=== PATIENT | male | born 1955 ===

== ENCOUNTER 2021-01-22 09:40 | Inpatient (IN) ==
[2021-01-22] MEDS ORDERED: Ondansetron 4 MG/2 ML VIAL IVP ONE (10:28)
[2021-01-22] MEDS ORDERED: 0.9 % Sodium Chloride 1,000 ML IVC ONE (10:28)
[2021-01-22] MEDS ORDERED: Isovue-370 500 ML BOTTLE IVP ONE (10:29)
[2021-01-22 10:53] LABS: Hematocrit 46.1 % (37.5-50.1); Hemoglobin 15.6 g/dL (12.9-16.9); Mean Corpuscular HGB Conc 33.8 g/dL (31.6-35.5); Mean Corpuscular Hemoglobin 30.9 pg (28.0-33.3); Mean Corpuscular Volume 91.3 fL (83.0-100.0); Platelet Count 275 K/mcL (140-400); Red Blood Count 5.05 M/mcL (4.19-5.50); Red Cell Distribution Width 13.1 % (11.5-14.5); White Blood Count 25.3 K/mcL (4.3-11.1)
[2021-01-22 11:09] LABS: Alanine Aminotransferase 36 Units/L (7-52); Albumin 4.3 g/dL (3.5-5.7); Albumin/Globulin Ratio 1.2 (1.1-2.2); Alkaline Phosphatase 87 Units/L (34-104); Aspartate Amino Transferase 26 Units/L (13-39); BUN/Creatinine Ratio 9 (6-26); Bilirubin,Direct 0.1 mg/dL (0.0-0.2); Bilirubin,Indirect 0.5 mg/dL (0.0-1.0); Bilirubin,Total 0.6 mg/dL (0.3-1.0); Blood Urea Nitrogen 10 mg/dL (8-23); Calcium 9.6 mg/dL (8.6-10.3); Carbon Dioxide 25 mEq/L (23-29); Chloride 100 mEq/L (98-107); Globulin 3.6 g/dL (2.4-3.5); Glucose 149 mg/dL (70-105); Lipase 6 Units/L (11-82); Osmolality,Calculated 282 (280-300); Sodium 135 mEq/L (136-145); Total Protein 7.9 g/dL (6.4-8.9); eGFR For African Americans > 60 (> 60); eGFR For Non-African Americans > 60 (> 60)
[2021-01-22 11:18] LABS: Monocytes # 0.5 K/mcL (0.0-1.3); Neutrophils # 23.8 K/mcL (1.6-8.9); Platelet Estimate Normal (Normal)
[2021-01-22] MEDS ORDERED: MetroNIDAZOLE 500 MG/100 ML 500 MG/100 ML BAG IVPB ONE (12:30)
[2021-01-22 12:59] LABS: Bilirubin,Urine Negative (Negative); Blood,Urine Trace (Negative); Clarity,Urine Clear (Clear); Color,Urine Light-Yellow (Yellow); Glucose,Urine (UA) Normal (Normal); Ketones,Urine Negative (Negative); Leukocyte Esterase,Urine Negative (Negative); Mucus,Urine Few per lpf (None-Few); Nitrite,Urine Negative (Negative); Protein,Urine Trace mg/dL (Neg-Trace); RBC,Urine 0-3 per hpf (0-3); Specific Gravity,Urine 1.018 (1.010-1.025); Urobilinogen,Urine Normal (Normal); WBC,Urine 0-3 per hpf (0-3)
[2021-01-22] MEDS ORDERED: Morphine Sulfate 2 MG/ML SYRINGE IVP STA (13:06)
[2021-01-22] MEDS ORDERED: Ondansetron 4 MG/2 ML VIAL IVP PRN (14:33)
[2021-01-22] MEDS ORDERED: Naloxone 0.4 MG/ML INJ IVP PRN (14:33)
[2021-01-22] MEDS: 0.9 % Sodium Chloride 1,000 ML IVC SCH ×3 (15:46→18:23)
[2021-01-22] MEDS: Piperacillin/Tazobactam 3.375 GM in 0.9 % Sodium Chloride Mini Bag 100 ML IVPB SCH (15:47)
[2021-01-22] MEDS: Primidone 50 MG TABLET PO SCH (21:41)
[2021-01-22] MEDS: lamoTRIgine 25 MG TABLET PO SCH (21:41)
[2021-01-23] MEDS: Piperacillin/Tazobactam 3.375 GM in 0.9 % Sodium Chloride Mini Bag 100 ML IVPB SCH ×3 (00:47→17:15)
[2021-01-23] MEDS: Latanoprost 2.5 ML BOTTLE BOTH EYES SCH ×2 (00:55→20:27)
[2021-01-23] MEDS: *HR* Enoxaparin 40 MG/0.4 ML SYRINGE SQ SCH (06:30)
[2021-01-23] MEDS: 0.9 % Sodium Chloride 1,000 ML IVC SCH (06:36)
[2021-01-23] MEDS: Aspirin Enteric Coated 81 MG Tablet PO SCH (10:11)
[2021-01-23 10:40] LABS: Basophils % 0.2 %; Eosinophils % 0.1 %; Hematocrit 38.5 % (37.5-50.1); Immature Granulocytes % 1.1 % (0-4); Lymphocytes # 1.4 K/mcL (0.6-4.6); Lymphocytes % 6.6 %; Mean Corpuscular HGB Conc 33.2 g/dL (31.6-35.5); Mean Corpuscular Hemoglobin 30.8 pg (28.0-33.3); Mean Corpuscular Volume 92.5 fL (83.0-100.0); Mean Platelet Volume 10.9 fL (9.4-12.4); Monocytes # 1.2 K/mcL (0.0-1.3); Monocytes % 5.5 %; Neutrophils # 18.2 K/mcL (1.6-8.9); Platelet Count 248 K/mcL (140-400); Red Blood Count 4.16 M/mcL (4.19-5.50); Red Cell Distribution Width 13.1 % (11.5-14.5); Segmented Neutrophils % 86.5 %
[2021-01-23 10:41] LABS: Hemoglobin 12.8 g/dL (12.9-16.9)
[2021-01-23 10:54] LABS: BUN/Creatinine Ratio 8 (6-26); Blood Urea Nitrogen 8 mg/dL (8-23); Calcium 8.1 mg/dL (8.6-10.3); Carbon Dioxide 23 mEq/L (23-29); Chloride 108 mEq/L (98-107); Glucose 116 mg/dL (70-105); Magnesium 1.9 mg/dL (1.6-2.6); Osmolality,Calculated 287 (280-300); Potassium 3.9 mEq/L (3.5-5.1); Sodium 139 mEq/L (136-145); eGFR For African Americans > 60 (> 60); eGFR For Non-African Americans > 60 (> 60)
[2021-01-23] MEDS ORDERED: *HR* HYDROmorphone (PF) 1 MG/ML SYRINGE IVP ONE (13:24)
[2021-01-23] MEDS: CENOBAMATE 200 MG PO SCH (13:52)
[2021-01-23] MEDS: lamoTRIgine 25 MG TABLET PO SCH (20:21)
[2021-01-23] MEDS: Primidone 50 MG TABLET PO SCH (20:21)
[2021-01-24] MEDS: Piperacillin/Tazobactam 3.375 GM in 0.9 % Sodium Chloride Mini Bag 100 ML IVPB SCH ×3 (00:46→15:40)
[2021-01-24] MEDS: *HR* Enoxaparin 40 MG/0.4 ML SYRINGE SQ SCH (06:07)
[2021-01-24 07:05] LABS: Basophils % 0.3 %; Eosinophils # 0.3 K/mcL (0.0-0.6); Eosinophils % 1.8 %; Hematocrit 37.9 % (37.5-50.1); Hemoglobin 12.7 g/dL (12.9-16.9); Immature Granulocytes % 0.9 % (0-4); Lymphocytes # 1.2 K/mcL (0.6-4.6); Lymphocytes % 7.7 %; Mean Corpuscular HGB Conc 33.5 g/dL (31.6-35.5); Mean Corpuscular Hemoglobin 31.3 pg (28.0-33.3); Mean Corpuscular Volume 93.3 fL (83.0-100.0); Mean Platelet Volume 10.5 fL (9.4-12.4); Monocytes # 1.2 K/mcL (0.0-1.3); Monocytes % 8.1 %; Neutrophils # 12.3 K/mcL (1.6-8.9); Platelet Count 277 K/mcL (140-400); Red Blood Count 4.06 M/mcL (4.19-5.50); Red Cell Distribution Width 13.1 % (11.5-14.5); Segmented Neutrophils % 81.2 %; White Blood Count 15.2 K/mcL (4.3-11.1)
[2021-01-24 07:30] LABS: BUN/Creatinine Ratio 9 (6-26); Blood Urea Nitrogen 8 mg/dL (8-23); Calcium 8.1 mg/dL (8.6-10.3); Carbon Dioxide 23 mEq/L (23-29); Chloride 105 mEq/L (98-107); Glucose 130 mg/dL (70-105); Magnesium 1.8 mg/dL (1.6-2.6); Osmolality,Calculated 282 (280-300); Potassium 3.8 mEq/L (3.5-5.1); Sodium 136 mEq/L (136-145); eGFR For African Americans > 60 (> 60); eGFR For Non-African Americans > 60 (> 60)
[2021-01-24] MEDS: CENOBAMATE 200 MG PO SCH (09:07)
[2021-01-24] MEDS: Aspirin Enteric Coated 81 MG Tablet PO SCH (09:07)
[2021-01-24] MEDS: Primidone 50 MG TABLET PO SCH (21:47)
[2021-01-24] MEDS: Latanoprost 2.5 ML BOTTLE BOTH EYES SCH (21:47)
[2021-01-24] MEDS: lamoTRIgine 25 MG TABLET PO SCH (21:47)
[2021-01-25] MEDS: Piperacillin/Tazobactam 3.375 GM in 0.9 % Sodium Chloride Mini Bag 100 ML IVPB SCH ×3 (00:27→16:15)
[2021-01-25 03:30] LABS: Basophils % 0.3 %; Eosinophils # 0.4 K/mcL (0.0-0.6); Eosinophils % 2.8 %; Hematocrit 35.9 % (37.5-50.1); Hemoglobin 12.3 g/dL (12.9-16.9); Immature Granulocytes % 0.8 % (0-4); Lymphocytes # 1.8 K/mcL (0.6-4.6); Lymphocytes % 12.9 %; Mean Corpuscular HGB Conc 34.3 g/dL (31.6-35.5); Mean Corpuscular Hemoglobin 31.5 pg (28.0-33.3); Mean Corpuscular Volume 91.8 fL (83.0-100.0); Monocytes # 1.4 K/mcL (0.0-1.3); Monocytes % 9.9 %; Neutrophils # 10.3 K/mcL (1.6-8.9); Platelet Count 273 K/mcL (140-400); Red Blood Count 3.91 M/mcL (4.19-5.50); Red Cell Distribution Width 12.9 % (11.5-14.5); Segmented Neutrophils % 73.3 %
[2021-01-25 03:49] LABS: BUN/Creatinine Ratio 8 (6-26); Blood Urea Nitrogen 7 mg/dL (8-23); Calcium 8.2 mg/dL (8.6-10.3); Carbon Dioxide 26 mEq/L (23-29); Chloride 102 mEq/L (98-107); Glucose 123 mg/dL (70-105); Osmolality,Calculated 277 (280-300); Potassium 3.9 mEq/L (3.5-5.1); Sodium 134 mEq/L (136-145); eGFR For African Americans > 60 (> 60); eGFR For Non-African Americans > 60 (> 60)
[2021-01-25] MEDS: *HR* Enoxaparin 40 MG/0.4 ML SYRINGE SQ SCH (08:20)
[2021-01-25] MEDS: CENOBAMATE 200 MG PO SCH (08:22)
[2021-01-25] MEDS: Aspirin Enteric Coated 81 MG Tablet PO SCH (08:22)
[2021-01-25] MEDS ORDERED: methylPREDNISolone 125 MG/2 ML VIAL IVP ONE (12:56)
[2021-01-25] MEDS: Latanoprost 2.5 ML BOTTLE BOTH EYES SCH (20:38)
[2021-01-25] MEDS: lamoTRIgine 25 MG TABLET PO SCH (20:39)
[2021-01-25] MEDS: Primidone 50 MG TABLET PO SCH (20:39)
[2021-01-26] MEDS: Piperacillin/Tazobactam 3.375 GM in 0.9 % Sodium Chloride Mini Bag 100 ML IVPB SCH ×4 (00:55→23:57)
[2021-01-26] MEDS: *HR* Enoxaparin 40 MG/0.4 ML SYRINGE SQ SCH (05:22)
[2021-01-26 06:43] LABS: Basophils # 0.1 K/mcL (0.0-0.2); Basophils % 0.3 %; Eosinophils # 0.1 K/mcL (0.0-0.6); Eosinophils % 0.7 %; Hematocrit 37.9 % (37.5-50.1); Hemoglobin 12.2 g/dL (12.9-16.9); Immature Granulocytes % 1.3 % (0-4); Lymphocytes # 2.5 K/mcL (0.6-4.6); Lymphocytes % 15.7 %; Mean Corpuscular HGB Conc 32.2 g/dL (31.6-35.5); Mean Corpuscular Hemoglobin 29.9 pg (28.0-33.3); Mean Corpuscular Volume 92.9 fL (83.0-100.0); Mean Platelet Volume 9.6 fL (9.4-12.4); Monocytes # 1.6 K/mcL (0.0-1.3); Monocytes % 10.2 %; Neutrophils # 11.4 K/mcL (1.6-8.9); Platelet Count 301 K/mcL (140-400); Red Blood Count 4.08 M/mcL (4.19-5.50); Red Cell Distribution Width 12.8 % (11.5-14.5); Segmented Neutrophils % 71.8 %; White Blood Count 15.9 K/mcL (4.3-11.1)
[2021-01-26 07:01] LABS: BUN/Creatinine Ratio 10 (6-26); Blood Urea Nitrogen 8 mg/dL (8-23); Calcium 8.7 mg/dL (8.6-10.3); Carbon Dioxide 25 mEq/L (23-29); Chloride 101 mEq/L (98-107); Glucose 98 mg/dL (70-105); Osmolality,Calculated 280 (280-300); Potassium 3.7 mEq/L (3.5-5.1); Sodium 136 mEq/L (136-145); eGFR For African Americans > 60 (> 60); eGFR For Non-African Americans > 60 (> 60)
[2021-01-26] MEDS: CENOBAMATE 200 MG PO SCH (09:07)
[2021-01-26] MEDS: Aspirin Enteric Coated 81 MG Tablet PO SCH (09:07)
[2021-01-26] MEDS ORDERED: Bisacodyl 10 MG RECTAL SUPPOSITORY RC ONE (15:41)
[2021-01-26] MEDS ORDERED: Morphine Sulfate 2 MG/ML SYRINGE IVP ONE (16:20)
[2021-01-26] MEDS ORDERED: SODIUM CHLORIDE/NAHCO3/KCL/PEG 4,000 ML SOLN.RECON PO ONE (17:00)
[2021-01-26] MEDS: Morphine Sulfate 2 MG/ML SYRINGE IVP STA ×2 (18:01→20:04)
[2021-01-26] MEDS: lamoTRIgine 25 MG TABLET PO SCH (20:38)
[2021-01-26] MEDS: Primidone 50 MG TABLET PO SCH (20:39)
[2021-01-26] MEDS: Latanoprost 2.5 ML BOTTLE BOTH EYES SCH (20:40)
[2021-01-27] MEDS: *HR* Enoxaparin 40 MG/0.4 ML SYRINGE SQ SCH (05:12)
[2021-01-27 06:55] LABS: Basophils # 0.1 K/mcL (0.0-0.2); Basophils % 0.4 %; Eosinophils # 0.1 K/mcL (0.0-0.6); Eosinophils % 0.4 %; Hematocrit 42.1 % (37.5-50.1); Immature Granulocytes % 1.2 % (0-4); Lymphocytes # 1.7 K/mcL (0.6-4.6); Lymphocytes % 11.7 %; Mean Corpuscular HGB Conc 33.5 g/dL (31.6-35.5); Mean Corpuscular Hemoglobin 30.9 pg (28.0-33.3); Mean Corpuscular Volume 92.1 fL (83.0-100.0); Mean Platelet Volume 10.1 fL (9.4-12.4); Monocytes # 1.4 K/mcL (0.0-1.3); Monocytes % 9.3 %; Neutrophils # 11.3 K/mcL (1.6-8.9); Platelet Count 321 K/mcL (140-400); Red Blood Count 4.57 M/mcL (4.19-5.50); White Blood Count 14.7 K/mcL (4.3-11.1)
[2021-01-27 06:56] LABS: Hemoglobin 14.1 g/dL (12.9-16.9)
[2021-01-27] MEDS: Aspirin Enteric Coated 81 MG Tablet PO SCH (07:16)
[2021-01-27 07:21] LABS: BUN/Creatinine Ratio 10 (6-26); Blood Urea Nitrogen 8 mg/dL (8-23); Calcium 9.3 mg/dL (8.6-10.3); Carbon Dioxide 26 mEq/L (23-29); Chloride 97 mEq/L (98-107); Glucose 109 mg/dL (70-105); Osmolality,Calculated 279 (280-300); Potassium 4.1 mEq/L (3.5-5.1); Sodium 135 mEq/L (136-145); eGFR For African Americans > 60 (> 60); eGFR For Non-African Americans > 60 (> 60)
[2021-01-27] MEDS: Piperacillin/Tazobactam 3.375 GM in 0.9 % Sodium Chloride Mini Bag 100 ML IVPB SCH ×3 (07:56→23:44)
[2021-01-27] MEDS: CENOBAMATE 200 MG PO SCH (07:56)
[2021-01-27] MEDS ORDERED: SODIUM CHLORIDE/NAHCO3/KCL/PEG 4,000 ML SOLN.RECON PO ONE (17:00)
[2021-01-27] MEDS: lamoTRIgine 25 MG TABLET PO SCH (20:20)
[2021-01-27] MEDS: Latanoprost 2.5 ML BOTTLE BOTH EYES SCH (20:21)
[2021-01-27] MEDS: Primidone 50 MG TABLET PO SCH (20:21)
[2021-01-28 05:30] LABS: Basophils # 0.1 K/mcL (0.0-0.2); Basophils % 0.6 %; Eosinophils # 0.2 K/mcL (0.0-0.6); Eosinophils % 1.8 %; Hematocrit 36.4 % (37.5-50.1); Immature Granulocytes % 1.2 % (0-4); Lymphocytes # 1.8 K/mcL (0.6-4.6); Lymphocytes % 16.9 %; Mean Corpuscular HGB Conc 33.5 g/dL (31.6-35.5); Mean Corpuscular Hemoglobin 31.2 pg (28.0-33.3); Mean Corpuscular Volume 93.1 fL (83.0-100.0); Mean Platelet Volume 9.1 fL (9.4-12.4); Monocytes # 1.4 K/mcL (0.0-1.3); Monocytes % 12.8 %; Neutrophils # 7.2 K/mcL (1.6-8.9); Platelet Count 301 K/mcL (140-400); Red Blood Count 3.91 M/mcL (4.19-5.50); Segmented Neutrophils % 66.7 %; White Blood Count 10.8 K/mcL (4.3-11.1)
[2021-01-28 05:33] LABS: Hemoglobin 12.2 g/dL (12.9-16.9)
[2021-01-28] MEDS: *HR* Enoxaparin 40 MG/0.4 ML SYRINGE SQ SCH (05:33)
[2021-01-28 05:48] LABS: BUN/Creatinine Ratio 9 (6-26); Blood Urea Nitrogen 7 mg/dL (8-23); Calcium 7.9 mg/dL (8.6-10.3); Carbon Dioxide 23 mEq/L (23-29); Chloride 104 mEq/L (98-107); Glucose 107 mg/dL (70-105); Osmolality,Calculated 280 (280-300); Potassium 3.6 mEq/L (3.5-5.1); Sodium 136 mEq/L (136-145); eGFR For African Americans > 60 (> 60); eGFR For Non-African Americans > 60 (> 60)
[2021-01-28] MEDS: Piperacillin/Tazobactam 3.375 GM in 0.9 % Sodium Chloride Mini Bag 100 ML IVPB SCH ×2 (08:55→16:48)
[2021-01-28] MEDS ORDERED: Ringers Solution, Lactated 1,000 ML IVC SCH (09:45)
[2021-01-28] MEDS ORDERED: *HR* Propofol 200 MG/20 ML VIAL IVP ONE (13:05)
[2021-01-28] MEDS ORDERED: Lidocaine -MPF 2% 5 ML VIAL ONE (13:05)
[2021-01-28] MEDS: Aspirin Enteric Coated 81 MG Tablet PO SCH (13:30)
[2021-01-28] MEDS: CENOBAMATE 200 MG PO SCH (13:30)
[2021-01-28] MEDS ORDERED: predniSONE 20 MG TABLET PO ONE (13:41)
[2021-01-28] MEDS: lamoTRIgine 25 MG TABLET PO SCH (20:27)
[2021-01-28] MEDS: Primidone 50 MG TABLET PO SCH (20:27)
[2021-01-28] MEDS ORDERED: Latanoprost 2.5 ML BOTTLE RIGHT EYE SCH (21:00)
[2021-01-29] MEDS: Piperacillin/Tazobactam 3.375 GM in 0.9 % Sodium Chloride Mini Bag 100 ML IVPB SCH ×2 (00:31→07:55)
[2021-01-29 06:57] LABS: Basophils % 0.3 %; Eosinophils # 0.1 K/mcL (0.0-0.6); Eosinophils % 0.4 %; Hematocrit 38.2 % (37.5-50.1); Hemoglobin 12.7 g/dL (12.9-16.9); Lymphocytes # 2.1 K/mcL (0.6-4.6); Lymphocytes % 14.9 %; Mean Corpuscular HGB Conc 33.2 g/dL (31.6-35.5); Mean Corpuscular Hemoglobin 30.5 pg (28.0-33.3); Mean Corpuscular Volume 91.8 fL (83.0-100.0); Mean Platelet Volume 9.4 fL (9.4-12.4); Monocytes # 1.3 K/mcL (0.0-1.3); Monocytes % 9.6 %; Neutrophils # 10.2 K/mcL (1.6-8.9); Platelet Count 316 K/mcL (140-400); Red Blood Count 4.16 M/mcL (4.19-5.50); Red Cell Distribution Width 12.9 % (11.5-14.5); Segmented Neutrophils % 73.8 %; White Blood Count 13.8 K/mcL (4.3-11.1)
[2021-01-29 07:17] LABS: BUN/Creatinine Ratio 9 (6-26); Blood Urea Nitrogen 7 mg/dL (8-23); Calcium 8.3 mg/dL (8.6-10.3); Carbon Dioxide 23 mEq/L (23-29); Chloride 104 mEq/L (98-107); Glucose 97 mg/dL (70-105); Osmolality,Calculated 280 (280-300); Potassium 3.7 mEq/L (3.5-5.1); Sodium 136 mEq/L (136-145); eGFR For African Americans > 60 (> 60); eGFR For Non-African Americans > 60 (> 60)
[2021-01-29] MEDS: *HR* Enoxaparin 40 MG/0.4 ML SYRINGE SQ SCH (07:55)
[2021-01-29] MEDS: Aspirin Enteric Coated 81 MG Tablet PO SCH (08:05)
[2021-01-29] MEDS: CENOBAMATE 200 MG PO SCH (08:05)
[2021-01-29 10:18] VITALS: BP 134/72
== END 2021-01-29 12:06 | disposition home or self-care (01) | DRG 872 ==
LOC: 3ANU 09:40 → EMEROOARM 09:40 → SUATTDRO 13:43 → 3ANU 14:12 → SUATTDRO 01-24 12:46
PROVIDERS: ADMIT Internal Medicine; ATTEND Internal Medicine

== ENCOUNTER 2021-02-11 17:24 | Inpatient (IN) ==
[2021-02-11] MEDS ORDERED: Ondansetron 4 MG/2 ML VIAL IVP PRN (17:58)
[2021-02-11] MEDS ORDERED: Naloxone 0.4 MG/ML INJ IVP PRN (17:58)
[2021-02-11 19:03] LABS: Basophils # 0.1 K/mcL (0.0-0.2); Basophils % 0.6 %; Eosinophils # 0.2 K/mcL (0.0-0.6); Eosinophils % 1.9 %; Hematocrit 36.9 % (37.5-50.1); Immature Granulocytes % 0.6 % (0-4); Lymphocytes # 1.8 K/mcL (0.6-4.6); Mean Corpuscular HGB Conc 32.5 g/dL (31.6-35.5); Mean Corpuscular Volume 92.3 fL (83.0-100.0); Mean Platelet Volume 9.6 fL (9.4-12.4); Monocytes # 0.8 K/mcL (0.0-1.3); Monocytes % 10.8 %; Neutrophils # 4.9 K/mcL (1.6-8.9); Platelet Count 372 K/mcL (140-400); Red Cell Distribution Width 13.2 % (11.5-14.5); Segmented Neutrophils % 63.1 %; White Blood Count 7.8 K/mcL (4.3-11.1)
[2021-02-11 19:10] LABS: INR 1.6; Prothrombin Time 17.7 Seconds (9.4-12.1)
[2021-02-11 19:24] LABS: BUN/Creatinine Ratio 19 (6-26); Blood Urea Nitrogen 14 mg/dL (8-23); Calcium 8.5 mg/dL (8.6-10.3); Carbon Dioxide 23 mEq/L (23-29); Chloride 103 mEq/L (98-107); Glucose 225 mg/dL (70-105); Osmolality,Calculated 286 (280-300); Phosphorous 2.9 mg/dL (2.7-4.5); Potassium 3.1 mEq/L (3.5-5.1); Sodium 134 mEq/L (136-145); eGFR For African Americans > 60 (> 60); eGFR For Non-African Americans > 60 (> 60)
[2021-02-11] MEDS: Ringers Solution, Lactated 1,000 ML IVC SCH (23:04)
[2021-02-12 01:02] LABS: Basophils # 0.1 K/mcL (0.0-0.2); Eosinophils # 0.2 K/mcL (0.0-0.6); Eosinophils % 3.1 %; Hematocrit 37.4 % (37.5-50.1); Hemoglobin 11.8 g/dL (12.9-16.9); Immature Granulocytes % 0.4 % (0-4); Lymphocytes # 2.1 K/mcL (0.6-4.6); Lymphocytes % 31.4 %; Mean Corpuscular HGB Conc 31.6 g/dL (31.6-35.5); Mean Corpuscular Hemoglobin 29.4 pg (28.0-33.3); Mean Corpuscular Volume 93.3 fL (83.0-100.0); Mean Platelet Volume 9.7 fL (9.4-12.4); Monocytes % 15.2 %; Neutrophils # 3.3 K/mcL (1.6-8.9); Platelet Count 369 K/mcL (140-400); Red Blood Count 4.01 M/mcL (4.19-5.50); Red Cell Distribution Width 13.1 % (11.5-14.5); Segmented Neutrophils % 48.9 %; White Blood Count 6.7 K/mcL (4.3-11.1)
[2021-02-12 01:09] LABS: INR 1.5
[2021-02-12 01:17] LABS: BUN/Creatinine Ratio 15 (6-26); Blood Urea Nitrogen 11 mg/dL (8-23); Calcium 8.6 mg/dL (8.6-10.3); Carbon Dioxide 25 mEq/L (23-29); Chloride 106 mEq/L (98-107); Glucose 93 mg/dL (70-105); Osmolality,Calculated 285 (280-300); Potassium 3.8 mEq/L (3.5-5.1); Sodium 138 mEq/L (136-145); eGFR For African Americans > 60 (> 60); eGFR For Non-African Americans > 60 (> 60)
[2021-02-12 02:12] LABS: Alanine Aminotransferase 206 Units/L (7-52); Albumin 3.4 g/dL (3.5-5.7); Albumin/Globulin Ratio 1.2 (1.1-2.2); Alkaline Phosphatase 62 Units/L (34-104); Aspartate Amino Transferase 130 Units/L (13-39); Bilirubin,Indirect 0.3 mg/dL (0.0-1.0); Bilirubin,Total 0.3 mg/dL (0.3-1.0); Globulin 2.8 g/dL (2.4-3.5); Total Protein 6.2 g/dL (6.4-8.9)
[2021-02-12] MEDS: Ringers Solution, Lactated 1,000 ML IVC SCH (07:04)
[2021-02-12] MEDS ORDERED: *HR* Midazolam HCl 2 MG/2 ML VIAL IVP ONE (10:46)
[2021-02-12] MEDS ORDERED: *HR* FentaNYL (PF) 100 MCG/2 ML VIAL IVP ONE (10:46)
[2021-02-12] MEDS: Piperacillin/Tazobactam 3.375 GM in 0.9 % Sodium Chloride Mini Bag 100 ML IVPB SCH ×2 (12:08→17:20)
[2021-02-12] MEDS: 0.9 % Sodium Chloride 1,000 ML IVC SCH ×2 (12:09→20:20)
[2021-02-12] MEDS: Primidone 50 MG TABLET PO SCH (13:22)
[2021-02-12] MEDS: Aspirin Enteric Coated 81 MG Tablet PO SCH (13:22)
[2021-02-12] MEDS: Patient Taking Own Medication 1 EACH PO SCH (13:27)
[2021-02-12] MEDS: *HR* OxyCODONE Immed Rel 5 MG TABLET PO PRN ×2 (15:14→21:21)
[2021-02-12] MEDS: *HR* Heparin 5,000 UNIT/ML VIAL SQ SCH (17:21)
[2021-02-12] MEDS ORDERED: Piperacillin/Tazobactam 3.375 GM in 0.9 % Sodium Chloride Mini Bag 100 ML IVPB SCH (19:00)
[2021-02-12] MEDS: Latanoprost 2.5 ML BOTTLE RIGHT EYE SCH (20:21)
[2021-02-13] MEDS: Piperacillin/Tazobactam 3.375 GM in 0.9 % Sodium Chloride Mini Bag 100 ML IVPB SCH ×3 (01:53→16:45)
[2021-02-13] MEDS: *HR* OxyCODONE Immed Rel 5 MG TABLET PO PRN ×2 (03:00→09:41)
[2021-02-13 03:17] LABS: Basophils # 0.1 K/mcL (0.0-0.2); Basophils % 0.8 %; Eosinophils # 0.3 K/mcL (0.0-0.6); Eosinophils % 4.1 %; Hematocrit 35.2 % (37.5-50.1); Hemoglobin 11.4 g/dL (12.9-16.9); Immature Granulocytes % 0.3 % (0-4); Lymphocytes # 2.1 K/mcL (0.6-4.6); Lymphocytes % 27.1 %; Mean Corpuscular HGB Conc 32.4 g/dL (31.6-35.5); Mean Corpuscular Hemoglobin 30.2 pg (28.0-33.3); Mean Corpuscular Volume 93.1 fL (83.0-100.0); Mean Platelet Volume 9.6 fL (9.4-12.4); Monocytes % 12.8 %; Neutrophils # 4.3 K/mcL (1.6-8.9); Platelet Count 332 K/mcL (140-400); Red Blood Count 3.78 M/mcL (4.19-5.50); Red Cell Distribution Width 13.3 % (11.5-14.5); Segmented Neutrophils % 54.9 %; White Blood Count 7.8 K/mcL (4.3-11.1)
[2021-02-13 03:42] LABS: Alanine Aminotransferase 163 Units/L (7-52); Albumin/Globulin Ratio 1.3 (1.1-2.2); Alkaline Phosphatase 52 Units/L (34-104); Aspartate Amino Transferase 91 Units/L (13-39); BUN/Creatinine Ratio 12 (6-26); Bilirubin,Total 0.2 mg/dL (0.3-1.0); Blood Urea Nitrogen 8 mg/dL (8-23); Calcium 7.8 mg/dL (8.6-10.3); Carbon Dioxide 23 mEq/L (23-29); Chloride 110 mEq/L (98-107); Globulin 2.4 g/dL (2.4-3.5); Glucose 100 mg/dL (70-105); Osmolality,Calculated 284 (280-300); Potassium 3.7 mEq/L (3.5-5.1); Sodium 138 mEq/L (136-145); Total Protein 5.4 g/dL (6.4-8.9); eGFR For African Americans > 60 (> 60); eGFR For Non-African Americans > 60 (> 60)
[2021-02-13] MEDS: 0.9 % Sodium Chloride 1,000 ML IVC SCH (04:28)
[2021-02-13] MEDS: *HR* Heparin 5,000 UNIT/ML VIAL SQ SCH ×2 (06:17→16:45)
[2021-02-13] MEDS: Aspirin Enteric Coated 81 MG Tablet PO SCH (08:25)
[2021-02-13] MEDS: Primidone 50 MG TABLET PO SCH (08:25)
[2021-02-13] MEDS: CENOBAMATE 200 MG PO SCH ×2 (08:30→09:15)
[2021-02-13] MEDS: Patient Taking Own Medication 1 EACH PO SCH (14:55)
[2021-02-13] MEDS: methylPREDNISolone 125 MG/2 ML VIAL IVP SCH (14:57)
[2021-02-13] MEDS: Latanoprost 2.5 ML BOTTLE RIGHT EYE SCH (22:30)
[2021-02-14 01:05] LABS: Hematocrit 35.2 % (37.5-50.1); Hemoglobin 11.8 g/dL (12.9-16.9); Mean Corpuscular HGB Conc 33.5 g/dL (31.6-35.5); Mean Corpuscular Hemoglobin 30.6 pg (28.0-33.3); Mean Corpuscular Volume 91.4 fL (83.0-100.0); Mean Platelet Volume 9.5 fL (9.4-12.4); Platelet Count 323 K/mcL (140-400); Red Blood Count 3.85 M/mcL (4.19-5.50); Red Cell Distribution Width 13.3 % (11.5-14.5); White Blood Count 8.1 K/mcL (4.3-11.1)
[2021-02-14 01:25] LABS: BUN/Creatinine Ratio 12 (6-26); Blood Urea Nitrogen 10 mg/dL (8-23); Calcium 8.2 mg/dL (8.6-10.3); Carbon Dioxide 25 mEq/L (23-29); Chloride 106 mEq/L (98-107); Glucose 107 mg/dL (70-105); Osmolality,Calculated 286 (280-300); Potassium 3.8 mEq/L (3.5-5.1); Sodium 138 mEq/L (136-145); eGFR For African Americans > 60 (> 60); eGFR For Non-African Americans > 60 (> 60)
[2021-02-14] MEDS: Piperacillin/Tazobactam 3.375 GM in 0.9 % Sodium Chloride Mini Bag 100 ML IVPB SCH ×3 (02:22→17:56)
[2021-02-14] MEDS: *HR* Heparin 5,000 UNIT/ML VIAL SQ SCH ×2 (05:54→17:56)
[2021-02-14] MEDS: methylPREDNISolone 125 MG/2 ML VIAL IVP SCH (07:27)
[2021-02-14] MEDS: CENOBAMATE 200 MG PO SCH (07:28)
[2021-02-14] MEDS: Primidone 50 MG TABLET PO SCH (07:28)
[2021-02-14] MEDS: Aspirin Enteric Coated 81 MG Tablet PO SCH (07:28)
[2021-02-14] MEDS: polyethylene glycoL 3350 17 GM POWD.PACK PO SCH (11:42)
[2021-02-14] MEDS: Patient Taking Own Medication 1 EACH PO SCH (18:55)
[2021-02-14] MEDS: 0.9 % Sodium Chloride 1,000 ML IVC SCH (19:56)
[2021-02-14] MEDS: Latanoprost 2.5 ML BOTTLE RIGHT EYE SCH (21:09)
[2021-02-15] MEDS: Piperacillin/Tazobactam 3.375 GM in 0.9 % Sodium Chloride Mini Bag 100 ML IVPB SCH ×2 (01:21→12:06)
[2021-02-15 04:06] LABS: Hematocrit 37.7 % (37.5-50.1); Hemoglobin 12.1 g/dL (12.9-16.9); Mean Corpuscular HGB Conc 32.1 g/dL (31.6-35.5); Mean Corpuscular Hemoglobin 29.6 pg (28.0-33.3); Mean Corpuscular Volume 92.2 fL (83.0-100.0); Mean Platelet Volume 9.5 fL (9.4-12.4); Platelet Count 329 K/mcL (140-400); Red Blood Count 4.09 M/mcL (4.19-5.50); Red Cell Distribution Width 13.1 % (11.5-14.5)
[2021-02-15 04:27] LABS: BUN/Creatinine Ratio 15 (6-26); Blood Urea Nitrogen 13 mg/dL (8-23); Calcium 8.7 mg/dL (8.6-10.3); Carbon Dioxide 27 mEq/L (23-29); Chloride 105 mEq/L (98-107); Glucose 105 mg/dL (70-105); Osmolality,Calculated 288 (280-300); Potassium 3.7 mEq/L (3.5-5.1); Sodium 139 mEq/L (136-145); eGFR For African Americans > 60 (> 60); eGFR For Non-African Americans > 60 (> 60)
[2021-02-15] MEDS: *HR* Heparin 5,000 UNIT/ML VIAL SQ SCH (05:38)
[2021-02-15] MEDS: methylPREDNISolone 125 MG/2 ML VIAL IVP SCH (08:08)
[2021-02-15] MEDS: polyethylene glycoL 3350 17 GM POWD.PACK PO SCH (08:08)
[2021-02-15] MEDS: Primidone 50 MG TABLET PO SCH (08:08)
[2021-02-15] MEDS: CENOBAMATE 200 MG PO SCH (08:09)
[2021-02-15] MEDS: Aspirin Enteric Coated 81 MG Tablet PO SCH (08:09)
[2021-02-15] MEDS: Patient Taking Own Medication 1 EACH PO SCH (08:09)
[2021-02-15 11:16] VITALS: BP 104/64
== END 2021-02-15 13:00 | disposition home or self-care (01) | DRG 372 ==
LOC: 3ANU → SUATTDRO 18:54
PROVIDERS: ADMIT Pharmacist; ATTEND Internal Medicine
PROC: IRDRAIN (2021-02-12 13:00)

== ENCOUNTER 2022-02-21 11:27 | Inpatient (IN) ==
[2022-02-21 13:21] LABS: Basophils # 0.1 K/mcL (0.0-0.2); Basophils % 0.6 %; Eosinophils # 0.4 K/mcL (0.0-0.6); Eosinophils % 3.8 %; Hematocrit 43.7 % (37.5-50.1); Hemoglobin 14.4 g/dL (12.9-16.9); Immature Granulocytes % 0.4 % (0-4); Lymphocytes # 2.1 K/mcL (0.6-4.6); Lymphocytes % 22.5 %; Mean Corpuscular Hemoglobin 30.6 pg (28.0-33.3); Mean Corpuscular Volume 92.8 fL (83.0-100.0); Mean Platelet Volume 10.8 fL (9.4-12.4); Monocytes # 0.9 K/mcL (0.0-1.3); Monocytes % 9.6 %; Neutrophils # 5.9 K/mcL (1.6-8.9); Platelet Count 222 K/mcL (140-400); Red Blood Count 4.71 M/mcL (4.19-5.50); Red Cell Distribution Width 12.8 % (11.5-14.5); Segmented Neutrophils % 63.1 %; White Blood Count 9.4 K/mcL (4.3-11.1)
[2022-02-21] MEDS ORDERED: Iopamidol - 370 500 ML MLS IVP ONE (13:29)
[2022-02-21 13:40] LABS: Alanine Aminotransferase 136 Units/L (7-52); Albumin 4.1 g/dL (3.5-5.7); Albumin/Globulin Ratio 1.3 (1.1-2.2); Alkaline Phosphatase 72 Units/L (34-104); Amylase 38 Units/L (29-103); Aspartate Amino Transferase 95 Units/L (13-39); BUN/Creatinine Ratio 10 (6-26); Bilirubin,Indirect 0.4 mg/dL (0.0-1.0); Bilirubin,Total 0.4 mg/dL (0.3-1.0); Blood Urea Nitrogen 11 mg/dL (8-23); Calcium 9.2 mg/dL (8.6-10.3); Carbon Dioxide 28 mEq/L (23-29); Chloride 105 mEq/L (98-107); Globulin 3.2 g/dL (2.4-3.5); Glucose 105 mg/dL (70-105); Lipase 17 Units/L (11-82); Osmolality,Calculated 288 (280-300); Potassium 4.1 mEq/L (3.5-5.1); Sodium 139 mEq/L (136-145); Total Protein 7.3 g/dL (6.4-8.9); eGFR For African Americans > 60 (> 60); eGFR For Non-African Americans > 60 (> 60)
[2022-02-21] MEDS ORDERED: Piperacillin/Tazobactam 3.375 GM in 0.9 % Sodium Chloride Mini Bag 100 ML IVPB ONE (14:19)
[2022-02-21] MEDS ORDERED: Ondansetron 4 MG/2 ML VIAL IVP PRN ×2 (14:50→20:24)
[2022-02-21] MEDS ORDERED: Naloxone 0.4 MG/ML INJ IVP PRN (14:50)
[2022-02-21] MEDS ORDERED: Ringers Solution, Lactated 1,000 ML IVC SCH (15:00)
[2022-02-21 16:13] LABS: Bilirubin,Urine Negative (Negative); Blood,Urine Negative (Negative); Clarity,Urine Clear (Clear); Color,Urine Light-Yellow (Yellow); Glucose,Urine (UA) Normal (Normal); Hyaline Casts,Urine Few per lpf (None Seen); Ketones,Urine Negative (Negative); Leukocyte Esterase,Urine Negative (Negative); Mucus,Urine Many per lpf (None-Few); Nitrite,Urine Negative (Negative); PH,Urine 6.5 pH Units (5.0-8.0); Protein,Urine 30 mg/dL (Neg-Trace); Specific Gravity,Urine > 1.030 (1.010-1.025); Squamous Epithelial Cell,Urine Few per hpf (None-Few); Urobilinogen,Urine Normal (Normal)
[2022-02-21] MEDS ORDERED: *HR* HYDROmorphone PF 0.5 MG/0.5 ML SYRINGE IVP PRN (20:24)
[2022-02-21] MEDS ORDERED: Primidone 50 MG TABLET PO SCH (21:00)
[2022-02-21] MEDS ORDERED: Latanoprost 2.5 ML BOTTLE RIGHT EYE SCH (21:00)
[2022-02-21] MEDS ORDERED: Ondansetron 4 MG/2 ML VIAL ONE (21:08)
[2022-02-21] MEDS ORDERED: Lidocaine -MPF 2% 2 ML VIAL ONE (21:08)
[2022-02-21] MEDS ORDERED: Lidocaine HCL 4 ML Topical Solution (Laryng-O-Jet Kit Sterile Pak) TP ONE (21:08)
[2022-02-21] MEDS ORDERED: *HR* Rocuronium Bromide 50 MG/5 ML VIAL ONE ×2 (21:08→22:18)
[2022-02-21] MEDS ORDERED: *HR* Succinylcholine 200 MG/10 ML VIAL IVP ONE (21:08)
[2022-02-21] MEDS ORDERED: *HR* Propofol 200 MG/20 ML VIAL IVP ONE (21:09)
[2022-02-21] MEDS ORDERED: *HR* Midazolam HCl 2 MG/2 ML VIAL ONE (21:09)
[2022-02-21] MEDS ORDERED: *HR* FentaNYL (PF) 100 MCG/2 ML VIAL ONE (21:09)
[2022-02-21] MEDS ORDERED: EPHEDrine 50 MG/ML VIAL ONE (22:00)
[2022-02-21] MEDS ORDERED: Piperacillin/Tazobactam 3.375 GM in 0.9 % Sodium Chloride Mini Bag 100 ML IVPB SCH (22:00)
[2022-02-21] MEDS ORDERED: *HR* HYDROMORPHONE 2 MG/ML VIAL ONE (22:19)
[2022-02-21] MEDS ORDERED: Sugammadex Sodium 200 MG/2 ML VIAL IV ONE (23:17)
[2022-02-22] MEDS ORDERED: Ondansetron 4 MG/2 ML VIAL IVP PRN (01:23)
[2022-02-22] MEDS ORDERED: Ringers Solution, Lactated 1,000 ML IVC SCH (01:23)
[2022-02-22] MEDS ORDERED: Naloxone 0.4 MG/ML INJ IVP PRN (01:23)
[2022-02-22] MEDS: Piperacillin/Tazobactam 3.375 GM in 0.9 % Sodium Chloride Mini Bag 100 ML IVPB SCH ×3 (05:46→22:05)
[2022-02-22 05:58] LABS: Basophils % 0.1 %; Hematocrit 39.7 % (37.5-50.1); Immature Granulocytes % 0.4 % (0-4); Lymphocytes # 0.8 K/mcL (0.6-4.6); Lymphocytes % 6.8 %; Mean Corpuscular HGB Conc 32.7 g/dL (31.6-35.5); Mean Corpuscular Hemoglobin 30.6 pg (28.0-33.3); Mean Corpuscular Volume 93.4 fL (83.0-100.0); Mean Platelet Volume 10.1 fL (9.4-12.4); Monocytes % 8.6 %; Neutrophils # 9.7 K/mcL (1.6-8.9); Platelet Count 216 K/mcL (140-400); Red Blood Count 4.25 M/mcL (4.19-5.50); Red Cell Distribution Width 12.9 % (11.5-14.5); Segmented Neutrophils % 84.1 %; White Blood Count 11.5 K/mcL (4.3-11.1)
[2022-02-22 06:19] LABS: BUN/Creatinine Ratio 13 (6-26); Blood Urea Nitrogen 13 mg/dL (8-23); Calcium 8.6 mg/dL (8.6-10.3); Carbon Dioxide 27 mEq/L (23-29); Chloride 105 mEq/L (98-107); Glucose 147 mg/dL (70-105); Magnesium 2.1 mg/dL (1.6-2.6); Osmolality,Calculated 289 (280-300); Potassium 4.6 mEq/L (3.5-5.1); Sodium 138 mEq/L (136-145); eGFR For African Americans > 60 (> 60); eGFR For Non-African Americans > 60 (> 60)
[2022-02-22] MEDS: Primidone 50 MG TABLET PO SCH ×2 (07:58→22:03)
[2022-02-22] MEDS: Artificial Tears SOLN 15 ML BOTTLE LEFT EYE SCH (07:59)
[2022-02-22] MEDS ORDERED: Artificial Tears SOLN 15 ML BOTTLE LEFT EYE SCH (09:00)
[2022-02-22] MEDS ORDERED: CENOBAMATE 200 MG PO SCH (09:00)
[2022-02-22] MEDS: CENOBAMATE 200 MG PO SCH (11:56)
[2022-02-22] MEDS ORDERED: Latanoprost 2.5 ML BOTTLE RIGHT EYE SCH (21:00)
[2022-02-23 03:53] LABS: Hemoglobin 13.4 g/dL (12.9-16.9); Mean Corpuscular HGB Conc 32.7 g/dL (31.6-35.5); Mean Corpuscular Hemoglobin 30.7 pg (28.0-33.3); Mean Corpuscular Volume 93.8 fL (83.0-100.0); Mean Platelet Volume 10.4 fL (9.4-12.4); Platelet Count 213 K/mcL (140-400); Red Blood Count 4.37 M/mcL (4.19-5.50); Red Cell Distribution Width 13.1 % (11.5-14.5); White Blood Count 10.4 K/mcL (4.3-11.1)
[2022-02-23 04:22] LABS: BUN/Creatinine Ratio 9 (6-26); Blood Urea Nitrogen 10 mg/dL (8-23); Calcium 7.9 mg/dL (8.6-10.3); Carbon Dioxide 23 mEq/L (23-29); Chloride 105 mEq/L (98-107); Glucose 90 mg/dL (70-105); Osmolality,Calculated 281 (280-300); Potassium 4.1 mEq/L (3.5-5.1); Sodium 136 mEq/L (136-145); eGFR For African Americans > 60 (> 60); eGFR For Non-African Americans > 60 (> 60)
[2022-02-23] MEDS: Piperacillin/Tazobactam 3.375 GM in 0.9 % Sodium Chloride Mini Bag 100 ML IVPB SCH (06:26)
[2022-02-23] MEDS: Primidone 50 MG TABLET PO SCH (07:59)
[2022-02-23] MEDS: CENOBAMATE 200 MG PO SCH (07:59)
[2022-02-23] MEDS: Artificial Tears SOLN 15 ML BOTTLE LEFT EYE SCH (08:00)
[2022-02-23] MEDS ORDERED: Gabapentin 300 MG CAPSULE PO SCH (09:00)
[2022-02-23 10:25] VITALS: BP 107/59; PULSE 63; TEMP 98.1; O2SAT 94
== END 2022-02-23 14:08 | disposition home or self-care (01) | DRG 339 ==
LOC: 3ANU 11:27 → EMEROOARM 11:27 → OBSVTOIN 17:40 → SUATTDRO 17:40 → 3ANU 18:34
PROVIDERS: ADMIT Internal Medicine; ATTEND Internal Medicine